=== PATIENT | female | born 1940 | race Caucasian/White ===

== ENCOUNTER 2018-07-31 11:20 | Inpatient (IN) ==
--- NOTE | 2018-07-31 13:12 | ED ---
HPI General Chief complaint: Weakness Stated complaint: Weak/Leg Complaint Time Seen by Provider: 07/31/18 12:53 History of Present Illness HPI narrative: 78-year-old female with history of atrial fibrillation on Eliquis , diabetes, hypothyroidism, presents with her for evaluation of weakness. Patient reports that for the past 8 months she has had weakness and fatigue, myalgias. The symptoms are worst proximally, primarily in the shoulder regions and in the thigh regions, less so distally. She has been following with neurologist Dr. Panchal. She had an outpatient muscle biopsy in the right thigh on June 10 and she was told that she had inflammation of the muscles. She was told that it may be related to statin use, she had been on statins for several years at that point. No longer on a statin. She has been referred to a neuromuscular specialist at the [facility] name Dr. Harris who she saw on July 02. She has been started on methotrexate and folic acid which she has been on for 1 month. She has been having home physical therapy twice a week. She reports that her symptoms are not improving. Today she felt more weak and fatigued than usual and this is what prompted evaluation. Typically her has to help her get out of bed and perform most of her activities of daily living and today was more difficult than most days. She denies any acute focal weakness. She denies any slurred speech, headache, acute neck or back pain, chest pain, shortness of breath, cough, congestion, abdominal pain, nausea, vomiting, fevers, chills, recent illness. She has no other complaints at this time. Primary care physician is at the [facility]. Related Data Home Medications Medication Instructions Recorded Confirmed apixaban [Eliquis] 5 mg PO BID 07/31/18 07/31/18 clonazepam 0.05 mg/kg PO BID 07/31/18 07/31/18 fluoxetine 20 mg PO DAILY 07/31/18 07/31/18 folic acid 1 mg PO DAILY 07/31/18 07/31/18 levothyroxine 50 mcg PO DAILY 07/31/18 07/31/18 losartan-hydrochlorothiazide 1 tab PO DAILY 07/31/18 07/31/18 metformin 500 mg PO BID 07/31/18 07/31/18 methotrexate sodium 20 mg PO QWEEK 07/31/18 07/31/18 metoprolol tartrate 12.5 mg PO BID 07/31/18 07/31/18 omeprazole 20 mg PO DAILY 07/31/18 07/31/18 timolol 1 drp OPHTHALMIC (EYE) BID 07/31/18 07/31/18 Allergies Allergy/AdvReac Type Severity Reaction Status Date / Time cefazolin [From [facility]] Allergy Abdominal Verified 07/31/18 13:02 Pain gentamicin AdvReac Severe VESTIBULAR Verified 07/31/18 11:40 DESTRUCTION Review of Systems ROS: all other systems reviewed are negative PMFSH Surgical History Surgical History History of bladder surgery (Acute) History of cholecystectomy (Acute) Hx of tonsillectomy (Acute) Family History Family History Mother Heart disease Father Heart disease Brother Heart disease Social History Social History Substance History: No History of Abuse Second Hand Smoke Exposure: No Smoking Status: Never smoker How Often Do You Have a Drink Containing Alcohol: Never Recent Travel in [facility] within the Last 8 Weeks: No Recent Out of Country Travel within the Last 8 Weeks: No Exam Narrative Exam Narrative: GENERAL: Pleasant well developed well-nourished female no acute distress. She required significant help getting from the wheelchair to the bed. SKIN: Warm and dry. HEAD: Atraumatic. Normocephalic. EYES: Pupils equal and round. No scleral icterus. No injection or drainage. ENT: No nasal bleeding or discharge. Mucous membranes pink and moist. NECK: Trachea midline. No JVD. CARDIOVASCULAR: Regular rate and rhythm. No murmur appreciated. RESPIRATORY: No accessory muscle use. Clear to auscultation. Breath sounds equal bilaterally. GASTROINTESTINAL: Abdomen soft, non-tender, nondistended. Hepatic and splenic margins not palpable. MUSCULOSKELETAL: No obvious deformities. Difficulty sitting on the edge of the bed. Requires help in order to go from a lying down to sitting position. There is 3-4 out of 5 muscle strength in the hips and shoulders bilaterally. Muscle strength is 4+ in the knees, ankles, wrists and elbows bilaterally. There is no edema in the extremities. NEUROLOGICAL: Awake and alert. No obvious cranial nerve deficits. Motor grossly within normal limits. Normal speech. Course Initial Documented Vital Signs Temperature 97.2 F L 07/31/18 11:28 Pulse Rate 54 L 07/31/18 11:28 Respiratory Rate 14 07/31/18 11:28 Blood Pressure 138/83 07/31/18 11:28 Pulse Oximetry 97 07/31/18 11:28 Last Documented Vital Signs Temperature 98.0 F 08/01/18 03:56 Pulse Rate 51 L 08/01/18 03:56 Respiratory Rate 16 08/01/18 03:56 Blood Pressure 137/62 08/01/18 03:56 Pulse Oximetry 94 L 08/01/18 04:00 Medical Decision Making LEIDY Attestation LEIDY supervised visit: Yes Attestation: I, Dr. Ventura, have reviewed the advance practice practitioner's documentation and am in agreement, met with the patient face to face, made the diagnosis, and the medical decision making was done by me. *My assessment and Findings: Myositis vs. polymyalgia rheumatica vs. rhabdomyolysis 78yo F with worsening generalized weakness that is more proximal muscles. This has been going on for months but worst last few days. Also more fatigue and frequent falls. Pt follows with neurologist Dr. Panchal and they thought it was myositis from statins and she has stopped taking statins for months. Labs reviewed, no leukocytosis. H/H normal. BUN/creatinine 20/0.99. CPK elevated at 1548. CKMB percentage is elevated at 6.1 but pt denies any chest pain or sob. TSH normal. Will admit pt for generalized weakness. MDM Narrative Medical decision making narrative: Lab work has been reviewed. Random glucose is 318, total CK is 1548 consistent with rhabdomyolysis. The patient was given 1 L of normal saline and 5 units of insulin. EKG reveals sinus bradycardia with a rate of 46. She will be admitted for further treatment. Discussed with the patient's neurologist Dr. Panchal, discussed with Dr. Francisco. Medical Screen Exam Complete: Yes Emergency Medical Condition: Yes Differential Diagnosis Differential Diagnosis: Polymyalgia rheumatica, inflammatory myopathy, drug- induced myositis, fibromyalgia, guillain [place], myasthenia gravis Lab Data Result diagrams: 08/01/18 03:35 08/01/18 03:35 Lab Results 07/31/18 07/31/18 07/31/18 Range/Units 13:19 13:30 13:30 WBC 8.2 (4.0-11.0) th/mm3 RBC 4.30 (4.00-5.30) mil/mm3 Hgb 13.2 (11.6-15.3) gm/dL Hct 39.7 (35.0-46.0) % MCV 92.2 (80.0-100.0) fL MCH 30.6 (27.0-34.0) pg MCHC 33.2 (32.0-36.0) % RDW 17.2 (11.6-17.2) % Plt Count 262 (150-450) th/mm3 MPV 7.1 (7.0-11.0) fL Neut % (Auto) 78.5 H (16.0-70.0) % Lymph % (Auto) 16.2 (9.0-44.0) % [place] % (Auto) 3.6 (0.0-8.0) % Eos % (Auto) 1.3 (0.0-4.0) % Baso % (Auto) 0.4 (0.0-2.0) % Neut # (Auto) 6.5 (1.8-7.7) th/mm3 Lymph # (Auto) 1.3 (1.0-4.8) th/mm3 [place] # (Auto) 0.3 (0.0-0.9) th/mm3 Eos # (Auto) 0.1 (0.0-0.4) th/mm3 Baso # (Auto) 0.0 (0.0-0.2) th/mm3 WBC Differential . Differential Comment Auto diff final Sodium 140 (136-145) meq/L Potassium 4.6 (3.5-5.1) meq/L Chloride 102 (98-107) meq/L Carbon Dioxide 30.7 (21.0-32.0) meq/L Anion Gap 7 (5-15) meq/L BUN 20 H (7-18) mg/dL Creatinine 0.99 (0.50-1.00) mg/dL Estimated GFR 54 L (>89) mL/min POC Glucose 266 H (68-110) mg/dl Random Glucose 318 H (74-106) mg/dL Calcium 8.5 (8.5-10.1) mg/dL Magnesium 2.1 (1.5-2.5) mg/dL Total Bilirubin 0.4 (0.2-1.0) mg/dL AST 55 H (15-37) U/L ALT 96 H (10-53) U/L Alkaline Phosphatase 86 (45-117) U/L Total Creatine Kinase 1548 H (26-192) U/L CK-MB (CK-2) 93.9 H (0.5-3.6) ng/mL CK-MB (CK-2) % 6.1 H* (0.0-4.0) % Total Protein 6.5 (6.4-8.2) g/dL Albumin 3.0 L (3.4-5.0) g/dL TSH 0.688 (0.358-3.740) uIU/mL Urine Color (Yellw/Straw) Urine Clarity (Clear) Urine pH (5.0-8.5) Ur Specific Shock (1.002-1.035) Urine Protein (Neg-Trace) mg/dL Urine Glucose (UA) (Negative) mg/dL Urine Ketones (Negative) mg/dL Urine Occult Blood (Negative) Urine Nitrate (Negative) Urine Bilirubin (Negative) Urine Urobilinogen (Less than 2) mg/dL Ur Leukocyte Esterase (Negative) Urine RBC (0-3) /hpf Urine WBC (0-5) /hpf Ur Squamous Epith Cells (0-5) /hpf Urine Bacteria (None) /hpf Hyaline Casts (0-3) /lpf Urine Mucus (Occasional) /lpf Micro UA Comment Ur Microscopic Review Urine Culture Comments IgA (90-497) mg/dL 07/31/18 07/31/18 07/31/18 Range/Units 15:24 17:04 20:50 WBC (4.0-11.0) th/mm3 RBC (4.00-5.30) mil/mm3 Hgb (11.6-15.3) gm/dL Hct (35.0-46.0) % MCV (80.0-100.0) fL MCH (27.0-34.0) pg MCHC (32.0-36.0) % RDW (11.6-17.2) % Plt Count (150-450) th/mm3 MPV (7.0-11.0) fL Neut % (Auto) (16.0-70.0) % Lymph % (Auto) (9.0-44.0) % [place] % (Auto) (0.0-8.0) % Eos % (Auto) (0.0-4.0) % Baso % (Auto) (0.0-2.0) % Neut # (Auto) (1.8-7.7) th/mm3 Lymph # (Auto) (1.0-4.8) th/mm3 [place] # (Auto) (0.0-0.9) th/mm3 Eos # (Auto) (0.0-0.4) th/mm3 Baso # (Auto) (0.0-0.2) th/mm3 WBC Differential Differential Comment Sodium (136-145) meq/L Potassium (3.5-5.1) meq/L Chloride (98-107) meq/L Carbon Dioxide (21.0-32.0) meq/L Anion Gap (5-15) meq/L BUN (7-18) mg/dL Creatinine (0.50-1.00) mg/dL Estimated GFR (>89) mL/min POC Glucose 195 H 113 H (68-110) mg/dl Random Glucose (74-106) mg/dL Calcium (8.5-10.1) mg/dL Magnesium (1.5-2.5) mg/dL Total Bilirubin (0.2-1.0) mg/dL AST (15-37) U/L ALT (10-53) U/L Alkaline Phosphatase (45-117) U/L Total Creatine Kinase (26-192) U/L CK-MB (CK-2) (0.5-3.6) ng/mL CK-MB (CK-2) % (0.0-4.0) % Total Protein (6.4-8.2) g/dL Albumin (3.4-5.0) g/dL TSH (0.358-3.740) uIU/mL Urine Color Yellow (Yellw/Straw) Urine Clarity Hazy H (Clear) Urine pH 5.0 (5.0-8.5) Ur Specific Shock 1.010 (1.002-1.035) Urine Protein Negative (Neg-Trace) mg/dL Urine Glucose (UA) Negative (Negative) mg/dL Urine Ketones Negative (Negative) mg/dL Urine Occult Blood Negative (Negative) Urine Nitrate Negative (Negative) Urine Bilirubin Negative (Negative) Urine Urobilinogen Less than 2 (Less than 2) mg/dL Ur Leukocyte Esterase Negative (Negative) Urine RBC 1 (0-3) /hpf Urine WBC 1 (0-5) /hpf Ur Squamous Epith Cells 6 (0-5) /hpf Urine Bacteria Occasional H (None) /hpf Hyaline Casts 1 (0-3) /lpf Urine Mucus Few H (Occasional) /lpf Micro UA Comment Culture not ind Ur Microscopic Review Not Reportable Urine Culture Comments Culture not ind IgA (90-497) mg/dL 07/31/18 07/31/18 08/01/18 Range/Units 20:54 20:54 03:35 WBC (4.0-11.0) th/mm3 RBC (4.00-5.30) mil/mm3 Hgb (11.6-15.3) gm/dL Hct (35.0-46.0) % MCV (80.0-100.0) fL MCH (27.0-34.0) pg MCHC (32.0-36.0) % RDW (11.6-17.2) % Plt Count (150-450) th/mm3 MPV (7.0-11.0) fL Neut % (Auto) (16.0-70.0) % Lymph % (Auto) (9.0-44.0) % [place] % (Auto) (0.0-8.0) % Eos % (Auto) (0.0-4.0) % Baso % (Auto) (0.0-2.0) % Neut # (Auto) (1.8-7.7) th/mm3 Lymph # (Auto) (1.0-4.8) th/mm3 [place] # (Auto) (0.0-0.9) th/mm3 Eos # (Auto) (0.0-0.4) th/mm3 Baso # (Auto) (0.0-0.2) th/mm3 WBC Differential Differential Comment Sodium 140 (136-145) meq/L Potassium 4.0 (3.5-5.1) meq/L Chloride 106 (98-107) meq/L Carbon Dioxide 29.2 (21.0-32.0) meq/L Anion Gap 5 (5-15) meq/L BUN 18 (7-18) mg/dL Creatinine 0.94 (0.50-1.00) mg/dL Estimated GFR 57 L (>89) mL/min POC Glucose (68-110) mg/dl Random Glucose 190 H D (74-106) mg/dL Calcium 8.0 L (8.5-10.1) mg/dL Magnesium (1.5-2.5) mg/dL Total Bilirubin 0.6 (0.2-1.0) mg/dL AST 43 H (15-37) U/L ALT 76 H (10-53) U/L Alkaline Phosphatase 80 (45-117) U/L Total Creatine Kinase 1283 H 1372 H (26-192) U/L CK-MB (CK-2) 60.2 H 53.6 H (0.5-3.6) ng/mL CK-MB (CK-2) % 4.7 H* 3.9 (0.0-4.0) % Total Protein 6.2 L (6.4-8.2) g/dL Albumin 2.7 L (3.4-5.0) g/dL TSH (0.358-3.740) uIU/mL Urine Color (Yellw/Straw) Urine Clarity (Clear) Urine pH (5.0-8.5) Ur Specific Shock (1.002-1.035) Urine Protein (Neg-Trace) mg/dL Urine Glucose (UA) (Negative) mg/dL Urine Ketones (Negative) mg/dL Urine Occult Blood (Negative) Urine Nitrate (Negative) Urine Bilirubin (Negative) Urine Urobilinogen (Less than 2) mg/dL Ur Leukocyte Esterase (Negative) Urine RBC (0-3) /hpf Urine WBC (0-5) /hpf Ur Squamous Epith Cells (0-5) /hpf Urine Bacteria (None) /hpf Hyaline Casts (0-3) /lpf Urine Mucus (Occasional) /lpf Micro UA Comment Ur Microscopic Review Urine Culture Comments IgA 92 Cancelled (90-497) mg/dL 08/01/18 Range/Units 03:35 WBC 5.0 (4.0-11.0) th/mm3 RBC 4.04 (4.00-5.30) mil/mm3 Hgb 12.2 (11.6-15.3) gm/dL Hct 36.7 (35.0-46.0) % MCV 90.8 (80.0-100.0) fL MCH 30.2 (27.0-34.0) pg MCHC 33.3 (32.0-36.0) % RDW 16.5 (11.6-17.2) % Plt Count 209 (150-450) th/mm3 MPV 7.1 (7.0-11.0) fL Neut % (Auto) 60.6 (16.0-70.0) % Lymph % (Auto) 33.4 (9.0-44.0) % [place] % (Auto) 2.1 (0.0-8.0) % Eos % (Auto) 2.9 (0.0-4.0) % Baso % (Auto) 1.0 (0.0-2.0) % Neut # (Auto) 3.0 (1.8-7.7) th/mm3 Lymph # (Auto) 1.7 (1.0-4.8) th/mm3 [place] # (Auto) 0.1 (0.0-0.9) th/mm3 Eos # (Auto) 0.1 (0.0-0.4) th/mm3 Baso # (Auto) 0.0 (0.0-0.2) th/mm3 WBC Differential . Differential Comment Auto diff final Sodium (136-145) meq/L Potassium (3.5-5.1) meq/L Chloride (98-107) meq/L Carbon Dioxide (21.0-32.0) meq/L Anion Gap (5-15) meq/L BUN (7-18) mg/dL Creatinine (0.50-1.00) mg/dL Estimated GFR (>89) mL/min POC Glucose (68-110) mg/dl Random Glucose (74-106) mg/dL Calcium (8.5-10.1) mg/dL Magnesium (1.5-2.5) mg/dL Total Bilirubin (0.2-1.0) mg/dL AST (15-37) U/L ALT (10-53) U/L Alkaline Phosphatase (45-117) U/L Total Creatine Kinase (26-192) U/L CK-MB (CK-2) (0.5-3.6) ng/mL CK-MB (CK-2) % (0.0-4.0) % Total Protein (6.4-8.2) g/dL Albumin (3.4-5.0) g/dL TSH (0.358-3.740) uIU/mL Urine Color (Yellw/Straw) Urine Clarity (Clear) Urine pH (5.0-8.5) Ur Specific Shock (1.002-1.035) Urine Protein (Neg-Trace) mg/dL Urine Glucose (UA) (Negative) mg/dL Urine Ketones (Negative) mg/dL Urine Occult Blood (Negative) Urine Nitrate (Negative) Urine Bilirubin (Negative) Urine Urobilinogen (Less than 2) mg/dL Ur Leukocyte Esterase (Negative) Urine RBC (0-3) /hpf Urine WBC (0-5) /hpf Ur Squamous Epith Cells (0-5) /hpf Urine Bacteria (None) /hpf Hyaline Casts (0-3) /lpf Urine Mucus (Occasional) /lpf Micro UA Comment Ur Microscopic Review Urine Culture Comments IgA (90-497) mg/dL ECG Data EKG Prior to Arrival: No Attestation: I personally reviewed and interpreted this ECG as follows: Interpretation: Sinus bradycardia at 46bpm. Normal axis. No significant ST elevation or depression. Discharge Plan Discharge Disposition Patient Disposition: 30 Still Patient Discharge Condition Condition: Stable Discharge Details Diagnosis: Rhabdomyolysis, Weakness Physicians Team ED Provider: Magali Ventura ED Midlevel Provider: Juan Finn Primary Care Provider: JAYMIE, Attending Provider: Jonel Hall Other Providers: Leandro Panchal ; [employer] Status ED Status: Left Department Discharge Information Discharge Date/Time: 07/31/18 19:56
[2018-07-31 13:47] LABS: Baso % (Auto) 0.4 % (0.0-2.0); Eos # (Auto) 0.1 th/mm3 (0.0-0.4); Eos % (Auto) 1.3 % (0.0-4.0); Hematocrit 39.7 % (35.0-46.0); Hemoglobin 13.2 gm/dL (11.6-15.3); Lymph # (Auto) 1.3 th/mm3 (1.0-4.8); Lymph % (Auto) 16.2 % (9.0-44.0); Mean Corpuscular HGB Conc 33.2 % (32.0-36.0); Mean Corpuscular Hemoglobin 30.6 pg (27.0-34.0); Mean Corpuscular Volume 92.2 fL (80.0-100.0); Mean Platelet Volume 7.1 fL (7.0-11.0); Mono # (Auto) 0.3 th/mm3 (0.0-0.9); Mono % (Auto) 3.6 % (0.0-8.0); Neut # (Auto) 6.5 th/mm3 (1.8-7.7); Neut % (Auto) 78.5 % (16.0-70.0); Platelet Count 262 th/mm3 (150-450); Red Cell Distribution Width 17.2 % (11.6-17.2); White Blood Count 8.2 th/mm3 (4.0-11.0)
[2018-07-31 13:52] LABS: Alanine Aminotransferase 96 U/L (10-53); Anion Gap 7 meq/L (5-15); Aspartate Aminotransferase 55 U/L (15-37); Blood Urea Nitrogen 20 mg/dL (7-18); Calcium 8.5 mg/dL (8.5-10.1); Carbon Dioxide 30.7 meq/L (21.0-32.0); Chloride 102 meq/L (98-107); Glomerular Filtration Rate 54 mL/min (>89); Glucose,Random 318 mg/dL (74-106); Magnesium 2.1 mg/dL (1.5-2.5); Potassium 4.6 meq/L (3.5-5.1); Sodium 140 meq/L (136-145)
[2018-07-31 14:06] LABS: Alkaline Phosphatase 86 U/L (45-117); Creatine Kinase 1548 U/L (26-192); Thyroid Stimulating Hormone 0.688 uIU/mL (0.358-3.740); Total Protein 6.5 g/dL (6.4-8.2)
[2018-07-31] MEDS ORDERED: Sod Chloride 0.9% Inj 1,000 ML IV.SIG SCH (14:15)
[2018-07-31 14:18] LABS: Creatine Kinase MB 93.9 ng/mL (0.5-3.6)
[2018-07-31 14:27] LABS: CKMB Percent 6.1 % (0.0-4.0)
[2018-07-31] MEDS ORDERED: Dextrose 50% in Water 50 ML Vial IV.PUSH PRN (15:18)
[2018-07-31] MEDS ORDERED: Acetaminophen 325 MG Tablet PO PRN (15:21)
[2018-07-31] MEDS ORDERED: Bisacodyl 10 MG Supp RECTAL PRN (15:21)
[2018-07-31] MEDS: Sod Chloride 0.9% Inj 1,000 ML IV.CONT SCH ×2 (15:42→23:42)
[2018-07-31] MEDS: Insulin NovoLOG Aspart Correctional Sugar Inj SQ SCH ×2 (17:08→20:02)
--- NOTE | 2018-07-31 19:07 | P.HPIM ---
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 She also reports sweating over the past day with some nausea which has currently resolved. She has been unable to get out of bed, get out of a chair. Denies any chest pain. When asked about diarrhea she reports being unable to control her stool over the past month but denies gunnar diarrhea. Review of Systems All other systems reviewed negative except as stated in HPI PMFSH - History History Provided By: Patient - Medical History Medical History: Medical History (Last Reviewed 07/31/18 @ 19:07 by Nash Francisco MD) Diabetes FH: cholecystectomy Hypertension Thyroid disorder - Surgical History Surgical History: Surgical History (Last Updated 07/31/18 @ 19:07 by Nash Francisco MD) History of bladder surgery History of cholecystectomy Hx of tonsillectomy - Family History Family History: Family History (Last Updated 07/31/18 @ 19:07 by Nash Francisco MD) Mother Heart disease Father Heart disease Brother Heart disease - Social History I have reviewed the patient's Social History: Yes - Tobacco History Second Hand Smoke Exposure: No Smoking Status: Never smoker - Alcohol History How Often Do You Have a Drink Containing Alcohol: Never - Substance Use History Substance History: No History of Abuse - Travel History Recent Travel in the [place] Within the Last 8 Weeks: No Recent Travel Out of the Country Within the Last 8 Weeks: No - Immunization History Tetanus Immunization: <5 Years Medications and Allergies Active Medications: Active Medications Acetaminophen (Tylenol) 650 mg PO Q4H PRN PRN Reason: Temp > 100.4 Acetaminophen (Tylenol) 650 mg PO Q24H [facility] Stop: 08/05/18 18:59 Al Hydroxide/Mg Hydroxide (Milk Of Magnesia Liq) 30 ml PO Q12H PRN PRN Reason: Mild Constipation Apixaban (Eliquis) 5 mg PO BID [facility] Bisacodyl (Dulcolax Supp) 10 mg RECTAL DAILY PRN PRN Reason: SEVERE CONSITIPATION Dextrose (D50w Vial) 50 ml IV.PUSH UNSCH PRN PRN Reason: PER HYPOGLYCEMIA PROTOCOL Diphenhydramine HCl (Benadryl) 25 mg PO Q24H [facility] Stop: 08/05/18 18:59 Diphenhydramine HCl (Benadryl Inj) 50 mg IV.PUSH PRN PRN PRN Reason: ALLERGIC REACTION Stop: 08/06/18 18:49 Epinephrine HCl (Epinephrine (1:1000) Inj) 0.3 mg OTHER Q10M PRN PRN Reason: Anaphylactic Reaction Stop: 08/06/18 18:49 Fluoxetine HCl (Prozac) 20 mg PO DAILY [facility] Folic Acid (Folic Acid) 1 mg PO DAILY [facility] Glucagon (Glucagon Inj) 1 mg OTHER PRN PRN PRN Reason: for Hypoglycemia Protocol Hydrochlorothiazide (Hydrodiuril) 25 mg PO DAILY [facility] Sodium Chloride (Ns Inj) 1,000 mls @ 150 mls/hr IV.CONT .Q6H40M [facility] Last Admin: 07/31/18 15:42 Dose: 150 mls/hr Dextrose (D5w Inj) 500 mls @ 30 mls/hr OTHER Q24H [facility] Stop: 08/05/18 18:59 Immune Globulin 30 gm/ (Miscellaneous Medication) 300 mls @ 37.5 mls/hr IV.SIG TITRATE [facility]; Protocol Stop: 08/05/18 19:49 Insulin Aspart (Novolog Insulin Correctional Sugar Inj) 0 unit SQ ACHS [facility]; Protocol Last Admin: 07/31/18 17:08 Dose: Not Given Insulin Detemir (Levemir Inj) 1 unit SQ BID [facility] Lactulose (Lactulose Liq) 30 ml PO DAILY PRN PRN Reason: SEVERE CONSITIPATION Levothyroxine Sodium (Synthroid) 50 mcg PO DAILY@0600 [facility] Losartan Potassium (Cozaar) 100 mg PO DAILY [facility] Metoprolol Tartrate (Lopressor) 12.5 mg PO BID [facility] Miscellaneous (Pill Splitter) 1 each OTHER PRN PRN PRN Reason: SEE LABEL COMMENTS Ondansetron HCl (Zofran Inj) 4 mg IV.PUSH Q6H PRN PRN Reason: NAUSEA OR VOMITING Pantoprazole Sodium (Protonix) 20 mg PO DAILY [facility] Sennosides (Senokot) 17.2 mg PO Q12H PRN PRN Reason: Moderate Constipation Sodium Chloride (Ns Flush) 2 ml IV.FLUSH BID [facility] Sodium Chloride (Ns Flush) 2 ml IV.FLUSH PRN PRN PRN Reason: FLUSH AFTER USING IV ACCESS Timolol Maleate (Timoptic 0.5% Drops) 1 drops EACH EYE BID [facility] Allergies Allergy/AdvReac Type Severity Reaction Status Date / Time cefazolin [From [facility]] Allergy Abdominal Verified 07/31/18 13:02 Pain gentamicin AdvReac Severe VESTIBULAR Verified 07/31/18 11:40 DESTRUCTION Home Medications Medication Instructions Recorded Confirmed Type apixaban [Eliquis] 5 mg PO BID 07/31/18 07/31/18 History clonazepam 0.05 mg/kg PO BID 07/31/18 07/31/18 History fluoxetine 20 mg PO DAILY 07/31/18 07/31/18 History folic acid 1 mg PO DAILY 07/31/18 07/31/18 History levothyroxine 50 mcg PO DAILY 07/31/18 07/31/18 History losartan-hydrochlorothiazide 1 tab PO DAILY 07/31/18 07/31/18 History metformin 500 mg PO BID 07/31/18 07/31/18 History methotrexate sodium 20 mg PO QWEEK 07/31/18 07/31/18 History metoprolol tartrate 12.5 mg PO BID 07/31/18 07/31/18 History omeprazole 20 mg PO DAILY 07/31/18 07/31/18 History timolol 1 drp OPHTHALMIC (EYE) BID 07/31/18 07/31/18 History Exam Vital signs: Vital Signs 07/31/18 11:28 07/31/18 13:05 07/31/18 15:18 Temperature 97.2 F L 97.8 F Pulse Rate 54 L 45 L 48 L Respiratory Rate 14 16 Blood Pressure 138/83 140/66 Pulse Oximetry 97 99 07/31/18 17:00 07/31/18 17:33 Temperature 97.7 F 97.7 F Pulse Rate 52 L 51 L Respiratory Rate 17 16 Blood Pressure 132/77 131/62 Pulse Oximetry 98 95 Intake & Output 07/31/18 07/31/18 08/01/18 06:59 18:59 06:59 Intake Total 1000 / 1000 Balance 1000 / 1000 Weight 73.936 kg Intake: IV 1000 / 1000 NS Inj 1,000 ML @ 1000 mls/hr 1000 / 1000 IV.SIG BOLUS [facility] Rx#:[id number] Other: Date of Last Bowel Movement 07/30/18 Narrative: GENERAL: patient lying in bed. Appears comfortable. Alert and oriented 4. SKIN: Warm and dry. HEAD: Atraumatic. Normocephalic. EYES: Pupils equal and round. No scleral icterus. No injection or drainage. ENT: No nasal bleeding or discharge. Mucous membranes pink and moist. NECK: Trachea midline. No JVD. CARDIOVASCULAR: Regular rate and rhythm. RESPIRATORY: No accessory muscle use. Clear to auscultation. Breath sounds equal bilaterally. GASTROINTESTINAL: Abdomen soft, non-tender, nondistended. Hepatic and splenic margins not palpable. MUSCULOSKELETAL: Extremities without clubbing, cyanosis, or edema. No obvious deformities. NEUROLOGICAL: Awake and alert. No obvious cranial nerve deficits. Motor grossly within normal limits. 4 out of 5 muscle strength in the arms and legs. Normal speech. PSYCHIATRIC: Appropriate mood and affect; insight and judgment normal. Results - Labs CBC & Chem 7: 07/31/18 13:30 07/31/18 13:30 Labs: Short CBC 07/31/18 Range/Units 13:30 WBC 8.2 (4.0-11.0) th/mm3 Hgb 13.2 (11.6-15.3) gm/dL Hct 39.7 (35.0-46.0) % Plt Count 262 (150-450) th/mm3 BMP 07/31/18 13:30 Sodium 140 Potassium 4.6 Chloride 102 Carbon Dioxide 30.7 BUN 20 H Creatinine 0.99 Calcium 8.5 Cardiac Enzymes 07/31/18 Range/Units 13:30 Total Creatine Kinase 1548 H (26-192) U/L CK-MB (CK-2) 93.9 H (0.5-3.6) ng/mL Liver Function 07/31/18 Range/Units 13:30 Total Bilirubin 0.4 (0.2-1.0) mg/dL AST 55 H (15-37) U/L ALT 96 H (10-53) U/L Alkaline Phosphatase 86 (45-117) U/L Albumin 3.0 L (3.4-5.0) g/dL Caprini VTE Risk Assessment Caprini VTE Risk Assessment: Moderate/High Risk (score >= 2) Caprini Risk Assessment Model: Point Value = 1 Point Value = 2 Point Value = 3 Point Value = 5 Age 41-60 Minor surgery BMI > 25 kg/m2 Swollen legs Varicose veins or History of unexplained or recurrent spontaneous Oral contraceptives or hormone replacement Sepsis (< 1 month) Serious lung disease, including pneumonia (< 1 month) Abnormal pulmonary function Acute myocardial infarction Congestive heart failure (< 1 month) History of inflammatory bowel disease Medical patient at bed rest Age 61-74 Arthroscopic surgery Major open surgery (> 45 min) Laparoscopic surgery (> 45 min) Malignancy Confined to bed (> 72 hours) Immobilizing plaster cast Central venous access Age >= 75 History of VTE Family history of VTE Factor V Leiden Prothrombin 63131M Lupus anticoagulant Anticardiolipin antibodies Elevated serum homocysteine Heparin-induced thrombocytopenia Other congenital or acquired thrombophilia Stroke (< 1 month) Elective arthroplasty Hip, pelvis, or leg fracture Acute spinal cord injury (< 1 month) Prophylaxis Regimen: Total Risk Factor Score Risk Level Prophylaxis Regimen 0-1 Low Early ambulation 2 Moderate Order ONE of the following: *Sequential Compression Device (SCD) *Heparin 5000 units SQ BID 3-4 Higher Order ONE of the following medications: *Heparin 5000 units SQ TID *Enoxaparin/Lovenox 40 mg SQ daily (WT < 150 kg, CrCl > 30 mL/min) *Enoxaparin/Lovenox 30 mg SQ daily (WT < 150 kg, CrCl > 10-29 mL/min) *Enoxaparin/Lovenox 30 mg SQ BID (WT < 150 kg, CrCl > 30 mL/min) AND/OR *Sequential Compression Device (SCD) 5 or more Highest Order ONE of the following medications: *Heparin 5000 units SQ TID (Preferred with Epidurals) *Enoxaparin/Lovenox 40 mg SQ daily (WT < 150 kg, CrCl > 30 mL/min) *Enoxaparin/Lovenox 30 mg SQ daily (WT < 150 kg, CrCl > 10-29 mL/min) *Enoxaparin/Lovenox 30 mg SQ BID (WT < 150 kg, CrCl > 30 mL/min) AND *Sequential Compression Device (SCD) Assessment and Plan - Plan //Acute exacerbation of chronic inflammatory myopathy. //Acute CK elevation. -CK 1548, with mild elevation in transaminases -We'll place on IV fluids. Discussed with Dr. Panchal of neurology. Have ordered 0.4 g/kg of IVIG daily 5 days. Neurology consulted. continue to monitor. Appreciate assistance. //Diabetes mellitus. With hyperglycemia in the 300s on admission Insulin sliding scale, diabetic diet. Start Levemir Check A1c //Atrial fibrillation Continue metoprolol for rate control. Continue Eliquis for anticoagulation. //Hypertension. Chronic. Blood pressure acceptable. Continue to monitor. Continue home medication. //Glaucoma. Chronic. Continue medication. //Hypothyroidism. Chronic. TSH 0.68 within normal limits. Continue home medication. //DVT prophylaxis. Patient is on therapeutic adequate hydration for atrial fibrillation. Discussed Condition With: patient, nurse, ED physician, Dr. Panchal. Discharge Planning: PT, OT consult pending. Hopefully patient will be able to go home with home health if improved, however suspect she may need rehabilitation. H&P: Quality - VTE Deep Vein Thrombosis/Pulmonary Embolism Present on Admission: No
[2018-07-31] MEDS: Acetaminophen 325 MG Tablet PO SCH (20:00)
[2018-07-31] MEDS: Metoprolol Tartrate 25 MG Tablet PO SCH (20:01)
[2018-07-31] MEDS ORDERED: IVIG (Immune Globulin) Inj 30 GM in Syringe/Bag 1 EACH IV.SIG SCH (21:00)
[2018-07-31 21:11] LABS: Bacteria,Urine Occasional /hpf; Bilirubin,Urine Negative (Negative); Clarity,Urine Hazy (Clear); Color,Urine Yellow (Yellw/Straw); Glucose,Urine (UA) Negative (Negative); Hyaline Casts,Urine 1 /lpf (0-3); Leukocyte Esterase,Urine Negative (Negative); Mucus,Urine Few /lpf (Occasional); Nitrite,Urine Negative (Negative); Squamous Epithelial Cell,Urine 6 /hpf (0-5)
[2018-07-31] MEDS: Timolol 0.5% Drops 5 ML Bottle EACH EYE SCH (21:27)
[2018-07-31 22:23] LABS: Creatine Kinase MB 60.2 ng/mL (0.5-3.6)
[2018-07-31 22:28] LABS: CKMB Percent 4.7 % (0.0-4.0)
--- NOTE | 2018-07-31 22:50 | MB ---
cc: Leandro Panchal MD DATE: 07/31/2018 HISTORY OF PRESENT ILLNESS: This is a 78-year-old woman who I have seen in the office before. She initially presented to [facility] with a history of hypertension, atrial fibrillation, insulin-dependent diabetes, on Eliquis 5 b.i.d., who had weakness, dyspnea on exertion. She had a cardiac catheterization with no stents or other intervention. She was feeling weak in her arms and legs, pain in her muscles. She was taken off her statin. Her troponins were elevated x 3. Her LDL was 68. On LFTs, her ALT was 130, AST 79. B12 of 938. ANABEL was negative. Rheumatoid factor negative. Thyroid normal. CPK was 3700. Sedimentation rate was 29. CAT scan was negative, as was chest x-ray. She had lower extremity weakness. We then saw her in the office. We did an EMG of the lower extremities. She had normal sensory snaps, some slowed conduction velocity of 33 meters per second in the legs and 36 meters second. EMG was normal below the knees. The right hamstring had a complex pattern of discharges, increased insertional activity, 3+ fibrillations, small polyphasic units. The right vastus lateralis, 1+ positive sharp waves with small polyphasic units, and she had an EMG that was consistent with a myopathy, active. Right deltoid was also involved. It was a mild motor neuropathy with involvement of the cervical, thoracic and lumbosacral paraspinal muscles. She had mild bilateral carpal tunnel syndrome, mild left cubital tunnel syndrome, but myopathic units were noted. She was put on steroids and felt a little bit better. Appetite was better, more energy, but fell and hit her coccyx. She had a coccyx fracture. 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 Her methylmalonic acid anti-GM1 antibody was normal. CPK was 2800. Anti-MAG antibodies were normal. Her B1, magnesium, NOAH level, sedimentation rate, nicotinic acid, B6 were all normal. She continued to be very weak. She was put on methotrexate from the [facility] last week after they found that she had antibody positive for anti-HMGCR antibody with a value 148, normal less than 20. Antinuclear antibody was negative. The myositis panels were normal. CBC was normal. CPK was 1840. AST was 56 and ALT was 133 on 07/02/2018. Methotrexate was started about a week ago. She seemed to feel somewhat better, but still very weak and she presented to the ER today for this weakness. Unable to get up off of bed by herself. MEDICATIONS AT HOME: 1. Apixaban 5 b.i.d. 2. Metoprolol. 3. Losartan. 4. Hydrochlorothiazide. 5. Thyroid medicine. 6. Klonopin 0.5 mg p.o. b.i.d. 7. Omeprazole. 8. Methotrexate 20 mg a week. 9. Metformin. 10. Folic acid 1 mg a day. 11. Fluoxetine. She continues on those medications here. PHYSICAL EXAMINATION: VITAL SIGNS: Afebrile, 52, 16, 130/52. NECK: There are no carotid bruits. HEART: Regular rate and rhythm. I do not detect a murmur. ABDOMEN: Soft and nontender. No complaints. NEUROLOGIC: Visual redman are full. Face is symmetric. Tongue is midline. Neck flexion is normal. Deltoids, triceps, finger extensors normal. Iliopsoas, she can get off the bed. I would rate her as about a 4/5. Tibialis anterior 5/5. DTRs trace. She is awake and alert. Speech is fluent. She is not aphasic. LABORATORY DATA: CBC is normal. UA is negative. Basic metabolic profile is normal. Glucose 113-266, AST 55, ALT 96. CPK 548. TSH normal. ELECTROCARDIOGRAM: Sinus rhythm, sinus sandra. 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 TREATMENT: IVIG and we will continue the methotrexate. Monitor her renal function on the IVIG and I will follow her with you in the hospital. MD CALLI Ram/bj , 09:50 PM , 10:01 PM
[2018-08-01 04:01] LABS: Eos # (Auto) 0.1 th/mm3 (0.0-0.4); Eos % (Auto) 2.9 % (0.0-4.0); Hematocrit 36.7 % (35.0-46.0); Hemoglobin 12.2 gm/dL (11.6-15.3); Lymph # (Auto) 1.7 th/mm3 (1.0-4.8); Lymph % (Auto) 33.4 % (9.0-44.0); Mean Corpuscular HGB Conc 33.3 % (32.0-36.0); Mean Corpuscular Hemoglobin 30.2 pg (27.0-34.0); Mean Corpuscular Volume 90.8 fL (80.0-100.0); Mean Platelet Volume 7.1 fL (7.0-11.0); Mono # (Auto) 0.1 th/mm3 (0.0-0.9); Mono % (Auto) 2.1 % (0.0-8.0); Neut % (Auto) 60.6 % (16.0-70.0); Platelet Count 209 th/mm3 (150-450); Red Blood Count 4.04 mil/mm3 (4.00-5.30); Red Cell Distribution Width 16.5 % (11.6-17.2)
[2018-08-01 04:32] LABS: Alanine Aminotransferase 76 U/L (10-53); Albumin 2.7 g/dL (3.4-5.0); Anion Gap 5 meq/L (5-15); Aspartate Aminotransferase 43 U/L (15-37); Blood Urea Nitrogen 18 mg/dL (7-18); Carbon Dioxide 29.2 meq/L (21.0-32.0); Chloride 106 meq/L (98-107); Glomerular Filtration Rate 57 mL/min (>89); Glucose,Random 190 mg/dL (74-106); Sodium 140 meq/L (136-145)
[2018-08-01] MEDS: Sod Chloride 0.9% Inj 1,000 ML IV.CONT SCH ×3 (04:40→18:19)
[2018-08-01 05:01] LABS: Alkaline Phosphatase 80 U/L (45-117); Creatine Kinase 1372 U/L (26-192); Total Protein 6.2 g/dL (6.4-8.2)
[2018-08-01 05:26] LABS: CKMB Percent 3.9 % (0.0-4.0); Creatine Kinase MB 53.6 ng/mL (0.5-3.6)
[2018-08-01] MEDS: Levothyroxine 50 MCG Tablet PO SCH (06:06)
--- NOTE | 2018-08-01 06:24 | P.PNNEU ---
Subjective Active Medications: Active Medications Acetaminophen (Tylenol) 650 mg PO Q4H PRN PRN Reason: Temp > 100.4 Acetaminophen (Tylenol) 650 mg PO Q24H [facility] Stop: 08/05/18 18:59 Last Admin: 07/31/18 20:00 Dose: 650 mg Al Hydroxide/Mg Hydroxide (Milk Of Magnhallie Liq) 30 ml PO Q12H PRN PRN Reason: Mild Constipation Apixaban (Eliquis) 5 mg PO BID [facility] Last Admin: 07/31/18 20:01 Dose: 5 mg Bisacodyl (Dulcolax Supp) 10 mg RECTAL DAILY PRN PRN Reason: SEVERE CONSITIPATION Dextrose (D50w Vial) 50 ml IV.PUSH UNSCH PRN PRN Reason: PER HYPOGLYCEMIA PROTOCOL Diphenhydramine HCl (Benadryl) 25 mg PO Q24H [facility] Stop: 08/05/18 18:59 Last Admin: 07/31/18 20:01 Dose: 25 mg Diphenhydramine HCl (Benadryl Inj) 50 mg IV.PUSH PRN PRN PRN Reason: ALLERGIC REACTION Stop: 08/06/18 18:49 Epinephrine HCl (Epinephrine (1:1000) Inj) 0.3 mg OTHER Q10M PRN PRN Reason: Anaphylactic Reaction Stop: 08/06/18 18:49 Fluoxetine HCl (Prozac) 20 mg PO DAILY [facility] Folic Acid (Folic Acid) 1 mg PO DAILY [facility] Glucagon (Glucagon Inj) 1 mg OTHER PRN PRN PRN Reason: for Hypoglycemia Protocol Hydrochlorothiazide (Hydrodiuril) 25 mg PO DAILY [facility] Sodium Chloride (Ns Inj) 1,000 mls @ 150 mls/hr IV.CONT .Q6H40M [facility] Last Infusion: 08/01/18 04:40 Dose: 150 mls/hr Dextrose (D5w Inj) 500 mls @ 30 mls/hr OTHER Q24H [facility] Stop: 08/05/18 19:59 Last Infusion: 08/01/18 04:39 Dose: 0 mls/hr Immune Globulin 30 gm/ (Miscellaneous Medication) 300 mls @ 37.5 mls/hr IV.SIG TITRATE [facility]; Protocol Stop: 08/05/18 20:59 Last Infusion: 08/01/18 04:27 Dose: Infused Insulin Aspart (Novolog Insulin Correctional Sugar Inj) 0 unit SQ ACHS [facility]; Protocol Last Admin: 07/31/18 20:02 Dose: Not Given Insulin Detemir (Levemir Inj) 1 unit SQ BID [facility] Lactulose (Lactulose Liq) 30 ml PO DAILY PRN PRN Reason: SEVERE CONSITIPATION Levothyroxine Sodium (Synthroid) 50 mcg PO DAILY@0600 [facility] Last Admin: 08/01/18 06:06 Dose: 50 mcg Losartan Potassium (Cozaar) 100 mg PO DAILY [facility] Metoprolol Tartrate (Lopressor) 12.5 mg PO BID [facility] Last Admin: 07/31/18 20:01 Dose: 12.5 mg Miscellaneous (Pill Splitter) 1 each OTHER PRN PRN PRN Reason: SEE LABEL COMMENTS Ondansetron HCl (Zofran Inj) 4 mg IV.PUSH Q6H PRN PRN Reason: NAUSEA OR VOMITING Pantoprazole Sodium (Protonix) 20 mg PO DAILY [facility] Sennosides (Senokot) 17.2 mg PO Q12H PRN PRN Reason: Moderate Constipation Sodium Chloride (Ns Flush) 2 ml IV.FLUSH BID [facility] Last Admin: 07/31/18 20:02 Dose: Not Given Sodium Chloride (Ns Flush) 2 ml IV.FLUSH PRN PRN PRN Reason: FLUSH AFTER USING IV ACCESS Timolol Maleate (Timoptic 0.5% Drops) 1 drops EACH EYE BID [facility] Last Admin: 07/31/18 21:27 Dose: Not Given Allergies/Adverse Reactions: Allergies Allergy/AdvReac Type Severity Reaction Status Date / Time cefazolin [From [facility]] Allergy Abdominal Verified 07/31/18 13:02 Pain gentamicin AdvReac Severe VESTIBULAR Verified 07/31/18 11:40 DESTRUCTION Physical Exam Vital signs: Vital Signs 07/31/18 11:28 07/31/18 13:05 07/31/18 15:18 Temperature 97.2 F L 97.8 F Pulse Rate 54 L 45 L 48 L Respiratory Rate 14 16 Blood Pressure 138/83 140/66 Pulse Oximetry 97 99 07/31/18 17:00 07/31/18 17:33 07/31/18 19:05 Temperature 97.7 F 97.7 F 97.9 F Pulse Rate 52 L 51 L 48 L Respiratory Rate 17 16 18 Blood Pressure 132/77 131/62 128/62 Pulse Oximetry 98 95 96 07/31/18 19:20 07/31/18 19:37 07/31/18 19:38 Temperature 97.7 F 98.7 F 98.7 F Pulse Rate 52 L 56 L 57 L Respiratory Rate 16 16 16 Blood Pressure 130/62 151/64 H 151/64 H Pulse Oximetry 94 L 94 L 07/31/18 20:35 07/31/18 20:59 07/31/18 21:00 Temperature 97.8 F 97.8 F Pulse Rate 52 L 52 L 52 L Respiratory Rate 16 16 16 Blood Pressure 128/62 131/58 L 130/52 L Pulse Oximetry 96 96 07/31/18 22:00 07/31/18 23:00 07/31/18 23:39 Temperature 97.8 F 97.9 F 98.9 F Pulse Rate 54 L 62 53 L Respiratory Rate 16 16 14 Blood Pressure 128/64 130/62 117/56 L Pulse Oximetry 96 92 L 08/01/18 00:00 08/01/18 01:00 08/01/18 02:00 Temperature 97.7 F 97.6 F 97.6 F Pulse Rate 52 L 63 52 L Respiratory Rate 18 16 16 Blood Pressure 132/62 131/77 118/58 L Pulse Oximetry 98 96 96 08/01/18 03:55 08/01/18 03:56 08/01/18 04:00 Temperature 98.0 F 98.0 F Pulse Rate 51 L 51 L Respiratory Rate 16 16 Blood Pressure 137/62 137/62 Pulse Oximetry 91 L 91 L 94 L Intake & Output 07/31/18 07/31/18 08/01/18 06:59 18:59 06:59 Intake Total 1000 / 1000 1160 / 1160 Balance 1000 / 1000 1160 / 1160 Weight 73.936 kg 73.94 kg Intake: IV 1000 / 1000 300 / 300 Privigen Inj 30 GM In Bag/ 300 / 300 Syringe 1 EACH @ 37.5 mls/hr IV .SIG TITRATE [facility] Rx#:[id number] NS Inj 1,000 ML @ 1000 mls/hr 1000 / 1000 IV.SIG BOLUS [facility] Rx#:[id number] Oral 360 / 360 Other 500 / 500 Other: Other Intake Source Saline Solution # Voids 3 Date of Last Bowel Movement 07/30/18 07/30/18 Weight On Admission 73.936 kg Narrative: awake alert lifts knee off bed well 5-/5 Objective Laboratory Results - last 24 hr 07/31/18 07/31/18 07/31/18 13:19 13:30 13:30 WBC 8.2 RBC 4.30 Hgb 13.2 Hct 39.7 MCV 92.2 MCH 30.6 MCHC 33.2 RDW 17.2 Plt Count 262 MPV 7.1 Neut % (Auto) 78.5 H Lymph % (Auto) 16.2 [place] % (Auto) 3.6 Eos % (Auto) 1.3 Baso % (Auto) 0.4 Neut # (Auto) 6.5 Lymph # (Auto) 1.3 [place] # (Auto) 0.3 Eos # (Auto) 0.1 Baso # (Auto) 0.0 WBC Differential . Differential Comment Auto diff final Sodium 140 Potassium 4.6 Chloride 102 Carbon Dioxide 30.7 Anion Gap 7 BUN 20 H Creatinine 0.99 Estimated GFR 54 L POC Glucose 266 H Random Glucose 318 H Calcium 8.5 Magnesium 2.1 Total Bilirubin 0.4 AST 55 H ALT 96 H Alkaline Phosphatase 86 Total Creatine Kinase 1548 H CK-MB (CK-2) 93.9 H CK-MB (CK-2) % 6.1 H* Total Protein 6.5 Albumin 3.0 L TSH 0.688 Urine Color Urine Clarity Urine pH Ur Specific [place] Urine Protein Urine Glucose (UA) Urine Ketones Urine Occult Blood Urine Nitrate Urine Bilirubin Urine Urobilinogen Ur Leukocyte Esterase Urine RBC Urine WBC Ur Squamous Epith Cells Urine Bacteria Hyaline Casts Urine Mucus Micro UA Comment Ur Microscopic Review Urine Culture Comments IgA 07/31/18 07/31/18 07/31/18 15:24 17:04 20:50 WBC RBC Hgb Hct MCV MCH MCHC RDW Plt Count MPV Neut % (Auto) Lymph % (Auto) [place] % (Auto) Eos % (Auto) Baso % (Auto) Neut # (Auto) Lymph # (Auto) [place] # (Auto) Eos # (Auto) Baso # (Auto) WBC Differential Differential Comment Sodium Potassium Chloride Carbon Dioxide Anion Gap BUN Creatinine Estimated GFR POC Glucose 195 H 113 H Random Glucose Calcium Magnesium Total Bilirubin AST ALT Alkaline Phosphatase Total Creatine Kinase CK-MB (CK-2) CK-MB (CK-2) % Total Protein Albumin TSH Urine Color Yellow Urine Clarity Hazy H Urine pH 5.0 Ur Specific [place] 1.010 Urine Protein Negative Urine Glucose (UA) Negative Urine Ketones Negative Urine Occult Blood Negative Urine Nitrate Negative Urine Bilirubin Negative Urine Urobilinogen Less than 2 Ur Leukocyte Esterase Negative Urine RBC 1 Urine WBC 1 Ur Squamous Epith Cells 6 Urine Bacteria Occasional H Hyaline Casts 1 Urine Mucus Few H Micro UA Comment Culture not ind Ur Microscopic Review Not Reportable Urine Culture Comments Culture not ind IgA 07/31/18 07/31/18 08/01/18 20:54 20:54 03:35 WBC RBC Hgb Hct MCV MCH MCHC RDW Plt Count MPV Neut % (Auto) Lymph % (Auto) [place] % (Auto) Eos % (Auto) Baso % (Auto) Neut # (Auto) Lymph # (Auto) [place] # (Auto) Eos # (Auto) Baso # (Auto) WBC Differential Differential Comment Sodium 140 Potassium 4.0 Chloride 106 Carbon Dioxide 29.2 Anion Gap 5 BUN 18 Creatinine 0.94 Estimated GFR 57 L POC Glucose Random Glucose 190 H D Calcium 8.0 L Magnesium Total Bilirubin 0.6 AST 43 H ALT 76 H Alkaline Phosphatase 80 Total Creatine Kinase 1283 H 1372 H CK-MB (CK-2) 60.2 H 53.6 H CK-MB (CK-2) % 4.7 H* 3.9 Total Protein 6.2 L Albumin 2.7 L TSH Urine Color Urine Clarity Urine pH Ur Specific [place] Urine Protein Urine Glucose (UA) Urine Ketones Urine Occult Blood Urine Nitrate Urine Bilirubin Urine Urobilinogen Ur Leukocyte Esterase Urine RBC Urine WBC Ur Squamous Epith Cells Urine Bacteria Hyaline Casts Urine Mucus Micro UA Comment Ur Microscopic Review Urine Culture Comments IgA 92 Cancelled 08/01/18 03:35 WBC 5.0 RBC 4.04 Hgb 12.2 Hct 36.7 MCV 90.8 MCH 30.2 MCHC 33.3 RDW 16.5 Plt Count 209 MPV 7.1 Neut % (Auto) 60.6 Lymph % (Auto) 33.4 [place] % (Auto) 2.1 Eos % (Auto) 2.9 Baso % (Auto) 1.0 Neut # (Auto) 3.0 Lymph # (Auto) 1.7 [place] # (Auto) 0.1 Eos # (Auto) 0.1 Baso # (Auto) 0.0 WBC Differential . Differential Comment Auto diff final Sodium Potassium Chloride Carbon Dioxide Anion Gap BUN Creatinine Estimated GFR POC Glucose Random Glucose Calcium Magnesium Total Bilirubin AST ALT Alkaline Phosphatase Total Creatine Kinase CK-MB (CK-2) CK-MB (CK-2) % Total Protein Albumin TSH Urine Color Urine Clarity Urine pH Ur Specific [place] Urine Protein Urine Glucose (UA) Urine Ketones Urine Occult Blood Urine Nitrate Urine Bilirubin Urine Urobilinogen Ur Leukocyte Esterase Urine RBC Urine WBC Ur Squamous Epith Cells Urine Bacteria Hyaline Casts Urine Mucus Micro UA Comment Ur Microscopic Review Urine Culture Comments IgA Review/Management - Review/Management Plan: imp day 2 ivig she can dc after third dose for a total of 2gm/kg watch renal fxt on it oob PT eliquis stable neuro no bad rxt to rx mtx too
[2018-08-01] MEDS ORDERED: Non-Formulary Drug (Losartan-Hydrochlorothiazide [Losartan-Hydrochlorothiazide] 1 TAB) PO SCH (09:00)
[2018-08-01] MEDS ORDERED: IVIG (Immune Globulin) Inj 30 GM in Syringe/Bag 1 EACH IV.SIG SCH (09:00)
[2018-08-01] MEDS: Insulin NovoLOG Aspart Correctional Sugar Inj SQ SCH ×4 (10:18→22:31)
[2018-08-01] MEDS: FLUoxetine 20 MG Capsule PO SCH (10:19)
[2018-08-01] MEDS: hydroCHLOROthiazide 25 MG Tablet PO SCH (10:19)
[2018-08-01] MEDS: Folic Acid 1 MG Tablet PO SCH (10:19)
[2018-08-01] MEDS: Metoprolol Tartrate 25 MG Tablet PO SCH (10:19)
[2018-08-01] MEDS: Pantoprazole Sodium 20 MG DR Tablet PO SCH (10:20)
[2018-08-01] MEDS: Timolol 0.5% Drops 5 ML Bottle EACH EYE SCH ×2 (10:21→23:00)
--- NOTE | 2018-08-01 11:03 | P.PN ---
Subjective Interval history: Follow up for weakness with hx of inflammatory myopathy. The patient is seen getting off bedside commode with assistance of RN. The patient reports continued generalized weakness. She is s/p 1 dose of the IVIG last night. Denies any other medical complaints including no fevers/chills, headache, lightheadedness, dizziness, chest pain, shortness of breath, or abdominal complaints. Physical Exam Vital signs: Vital Signs 07/31/18 11:28 07/31/18 13:05 07/31/18 15:18 Temperature 97.2 F L 97.8 F Pulse Rate 54 L 45 L 48 L Respiratory Rate 14 16 Blood Pressure 138/83 140/66 Pulse Oximetry 97 99 07/31/18 17:00 07/31/18 17:33 07/31/18 19:05 Temperature 97.7 F 97.7 F 97.9 F Pulse Rate 52 L 51 L 48 L Respiratory Rate 17 16 18 Blood Pressure 132/77 131/62 128/62 Pulse Oximetry 98 95 96 07/31/18 19:20 07/31/18 19:37 07/31/18 19:38 Temperature 97.7 F 98.7 F 98.7 F Pulse Rate 52 L 56 L 57 L Respiratory Rate 16 16 16 Blood Pressure 130/62 151/64 H 151/64 H Pulse Oximetry 94 L 94 L 07/31/18 20:35 07/31/18 20:59 07/31/18 21:00 Temperature 97.8 F 97.8 F Pulse Rate 52 L 52 L 52 L Respiratory Rate 16 16 16 Blood Pressure 128/62 131/58 L 130/52 L Pulse Oximetry 96 96 07/31/18 22:00 07/31/18 23:00 07/31/18 23:39 Temperature 97.8 F 97.9 F 98.9 F Pulse Rate 54 L 62 53 L Respiratory Rate 16 16 14 Blood Pressure 128/64 130/62 117/56 L Pulse Oximetry 96 92 L 08/01/18 00:00 08/01/18 01:00 08/01/18 02:00 Temperature 97.7 F 97.6 F 97.6 F Pulse Rate 52 L 63 52 L Respiratory Rate 18 16 16 Blood Pressure 132/62 131/77 118/58 L Pulse Oximetry 98 96 96 08/01/18 03:55 08/01/18 03:56 08/01/18 04:00 Temperature 98.0 F 98.0 F Pulse Rate 51 L 51 L Respiratory Rate 16 16 Blood Pressure 137/62 137/62 Pulse Oximetry 91 L 91 L 94 L 08/01/18 08:00 Temperature 98.3 F Pulse Rate 51 L Respiratory Rate 18 Blood Pressure 138/63 Pulse Oximetry 90 L Intake & Output 07/31/18 08/01/18 08/01/18 18:59 06:59 18:59 Intake Total 1000 / 1000 1160 / 1160 Balance 1000 / 1000 1160 / 1160 Weight 73.936 kg 73.94 kg Intake: IV 1000 / 1000 300 / 300 Privigen Inj 30 GM In Bag/ 300 / 300 Syringe 1 EACH @ 37.5 mls/hr IV .SIG TITRATE SANJAY Rx#:[id number] NS Inj 1,000 ML @ 1000 mls/hr 1000 / 1000 IV.SIG BOLUS SANJAY Rx#:[id number] Oral 360 / 360 Other 500 / 500 Other: Other Intake Source Saline Solution # Voids 3 Date of Last Bowel Movement 07/30/18 07/30/18 Weight On Admission 73.936 kg Narrative: GENERAL: Well-nourished, well-developed pleasant elderly female patient in [facility]. SKIN: Warm and dry. No rash. HEENT: Normocephalic. Atraumatic. Pupils equal and round. Mucous membranes pink and moist. CARDIOVASCULAR: Regular rate and rhythm. No murmur appreciated. RESPIRATORY: No accessory muscle use. Clear to auscultation. Breath sounds equal bilaterally. GASTROINTESTINAL: Abdomen soft, non-tender, nondistended. Normoactive bowel sounds x4. MUSCULOSKELETAL: No obvious deformities. Extremities without clubbing, cyanosis , or edema. NEUROLOGICAL: Awake and alert. No obvious cranial nerve deficits. Motor grossly within normal limits. Moving all extremities spontaneously, with 5/5 turfgrass management professor strength and hip flexion bilaterally. Normal speech. PSYCHIATRIC: Appropriate mood and affect; insight and judgment normal. Results - Labs CBC & Chem 7: 08/01/18 03:35 08/01/18 03:35 Laboratory Results - last 24 hr 07/31/18 07/31/18 07/31/18 13:19 13:30 13:30 WBC 8.2 RBC 4.30 Hgb 13.2 Hct 39.7 MCV 92.2 MCH 30.6 MCHC 33.2 RDW 17.2 Plt Count 262 MPV 7.1 Neut % (Auto) 78.5 H Lymph % (Auto) 16.2 [place] % (Auto) 3.6 Eos % (Auto) 1.3 Baso % (Auto) 0.4 Neut # (Auto) 6.5 Lymph # (Auto) 1.3 [place] # (Auto) 0.3 Eos # (Auto) 0.1 Baso # (Auto) 0.0 WBC Differential . Differential Comment Auto diff final Sodium 140 Potassium 4.6 Chloride 102 Carbon Dioxide 30.7 Anion Gap 7 BUN 20 H Creatinine 0.99 Estimated GFR 54 L POC Glucose 266 H Random Glucose 318 H Hemoglobin A1c Calcium 8.5 Magnesium 2.1 Total Bilirubin 0.4 AST 55 H ALT 96 H Alkaline Phosphatase 86 Total Creatine Kinase 1548 H CK-MB (CK-2) 93.9 H CK-MB (CK-2) % 6.1 H* Total Protein 6.5 Albumin 3.0 L TSH 0.688 Urine Color Urine Clarity Urine pH Ur Specific [place] Urine Protein Urine Glucose (UA) Urine Ketones Urine Occult Blood Urine Nitrate Urine Bilirubin Urine Urobilinogen Ur Leukocyte Esterase Urine RBC Urine WBC Ur Squamous Epith Cells Urine Bacteria Hyaline Casts Urine Mucus Micro UA Comment Ur Microscopic Review Urine Culture Comments IgA 07/31/18 07/31/18 07/31/18 13:30 15:24 17:04 WBC RBC Hgb Hct MCV MCH MCHC RDW Plt Count MPV Neut % (Auto) Lymph % (Auto) [place] % (Auto) Eos % (Auto) Baso % (Auto) Neut # (Auto) Lymph # (Auto) [place] # (Auto) Eos # (Auto) Baso # (Auto) WBC Differential Differential Comment Sodium Potassium Chloride Carbon Dioxide Anion Gap BUN Creatinine Estimated GFR POC Glucose 195 H 113 H Random Glucose Hemoglobin A1c 9.0 H Calcium Magnesium Total Bilirubin AST ALT Alkaline Phosphatase Total Creatine Kinase CK-MB (CK-2) CK-MB (CK-2) % Total Protein Albumin TSH Urine Color Urine Clarity Urine pH Ur Specific [place] Urine Protein Urine Glucose (UA) Urine Ketones Urine Occult Blood Urine Nitrate Urine Bilirubin Urine Urobilinogen Ur Leukocyte Esterase Urine RBC Urine WBC Ur Squamous Epith Cells Urine Bacteria Hyaline Casts Urine Mucus Micro UA Comment Ur Microscopic Review Urine Culture Comments IgA 07/31/18 07/31/18 07/31/18 20:50 20:54 20:54 WBC RBC Hgb Hct MCV MCH MCHC RDW Plt Count MPV Neut % (Auto) Lymph % (Auto) [place] % (Auto) Eos % (Auto) Baso % (Auto) Neut # (Auto) Lymph # (Auto) [place] # (Auto) Eos # (Auto) Baso # (Auto) WBC Differential Differential Comment Sodium Potassium Chloride Carbon Dioxide Anion Gap BUN Creatinine Estimated GFR POC Glucose Random Glucose Hemoglobin A1c Calcium Magnesium Total Bilirubin AST ALT Alkaline Phosphatase Total Creatine Kinase 1283 H CK-MB (CK-2) 60.2 H CK-MB (CK-2) % 4.7 H* Total Protein Albumin TSH Urine Color Yellow Urine Clarity Hazy H Urine pH 5.0 Ur Specific [place] 1.010 Urine Protein Negative Urine Glucose (UA) Negative Urine Ketones Negative Urine Occult Blood Negative Urine Nitrate Negative Urine Bilirubin Negative Urine Urobilinogen Less than 2 Ur Leukocyte Esterase Negative Urine RBC 1 Urine WBC 1 Ur Squamous Epith Cells 6 Urine Bacteria Occasional H Hyaline Casts 1 Urine Mucus Few H Micro UA Comment Culture not ind Ur Microscopic Review Not Reportable Urine Culture Comments Culture not ind IgA 92 Cancelled 08/01/18 08/01/18 08/01/18 03:35 03:35 07:52 WBC 5.0 RBC 4.04 Hgb 12.2 Hct 36.7 MCV 90.8 MCH 30.2 MCHC 33.3 RDW 16.5 Plt Count 209 MPV 7.1 Neut % (Auto) 60.6 Lymph % (Auto) 33.4 [place] % (Auto) 2.1 Eos % (Auto) 2.9 Baso % (Auto) 1.0 Neut # (Auto) 3.0 Lymph # (Auto) 1.7 [place] # (Auto) 0.1 Eos # (Auto) 0.1 Baso # (Auto) 0.0 WBC Differential . Differential Comment Auto diff final Sodium 140 Potassium 4.0 Chloride 106 Carbon Dioxide 29.2 Anion Gap 5 BUN 18 Creatinine 0.94 Estimated GFR 57 L POC Glucose 162 H Random Glucose 190 H D Hemoglobin A1c Calcium 8.0 L Magnesium Total Bilirubin 0.6 AST 43 H ALT 76 H Alkaline Phosphatase 80 Total Creatine Kinase 1372 H CK-MB (CK-2) 53.6 H CK-MB (CK-2) % 3.9 Total Protein 6.2 L Albumin 2.7 L TSH Urine Color Urine Clarity Urine pH Ur Specific [place] Urine Protein Urine Glucose (UA) Urine Ketones Urine Occult Blood Urine Nitrate Urine Bilirubin Urine Urobilinogen Ur Leukocyte Esterase Urine RBC Urine WBC Ur Squamous Epith Cells Urine Bacteria Hyaline Casts Urine Mucus Micro UA Comment Ur Microscopic Review Urine Culture Comments IgA Assessment and Plan - Plan 78-year-old female with history of atrial fibrillation, diabetes, hypothyroidism , 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 Acute exacerbation of chronic inflammatory myopathy. Acute Rhabdomyolysis/CK elevation. -Trend CK 1548 --> 1283 --> 1372 -Continue on IVF hydration -Consult neurologist Dr. Panchal, plans for IVIG once daily 3 doses. -Consult PT/OT Diabetes mellitus: with hyperglycemia in the 300s on admission -Insulin sliding scale -diabetic diet. HgbA1c 9.0 -Start Levemir 5u bid Atrial fibrillation: chronic -Continue metoprolol for rate control. -Continue Eliquis for anticoagulation. Hypertension: Chronic. Blood pressure acceptable. -Continue patient's losartan, HCTZ, metoprolol -Monitor BP, adjust antihypertensives as needed Glaucoma: Chronic. -Continue timolol eye drops Hypothyroidism. Chronic. -TSH 0.68 within normal limits. -Continue home Synthroid 50mcg daily DVT prophylaxis: on Eliquis Discharge Planning: Patient will receive last dose of IVIG at 9pm on 08/02. Will plan to discharge in am on 08/03.
[2018-08-01] MEDS: Insulin Detemir Inj 1,000 UNIT/10 ML Vial SQ SCH ×2 (13:26→22:31)
--- NOTE | 2018-08-01 13:54 | ECG ---
Date Performed: 07/31/2018 Time Performed: 13:42:51 PTAGE: 78 years EKG: SINUS BRADYCARDIA LEFT VENTRICULAR HYPERTROPHY AND ST-T CHANGE ABNORMAL ECG Since the PREVIOUS TRACING , no significant change noted PREVIOUS TRACIN03/09/2010 06.22 DOCTOR: Ez Reyes Interpretating Date/Time 08/01/2018 13:49:15
[2018-08-01] MEDS: Acetaminophen 325 MG Tablet PO SCH (20:20)
[2018-08-01] MEDS: IVIG (Immune Globulin) Inj 30 GM in Syringe/Bag 1 EACH IV.SIG SCH (22:40)
[2018-08-02] MEDS: Metoprolol Tartrate 25 MG Tablet PO SCH ×3 (04:24→21:36)
[2018-08-02] MEDS: Levothyroxine 50 MCG Tablet PO SCH (05:11)
[2018-08-02] MEDS: Sod Chloride 0.9% Inj 1,000 ML IV.CONT SCH ×2 (05:48→10:30)
[2018-08-02] MEDS ORDERED: Insulin Detemir Inj 1,000 UNIT/10 ML Vial SQ SCH (07:53)
[2018-08-02] MEDS: FLUoxetine 20 MG Capsule PO SCH (08:47)
[2018-08-02] MEDS: Folic Acid 1 MG Tablet PO SCH (08:47)
[2018-08-02] MEDS: Pantoprazole Sodium 20 MG DR Tablet PO SCH (08:47)
[2018-08-02] MEDS: hydroCHLOROthiazide 25 MG Tablet PO SCH (08:48)
[2018-08-02 08:59] LABS: Calcium 7.8 mg/dL (8.5-10.1); Carbon Dioxide 23.3 meq/L (21.0-32.0); Potassium 3.6 meq/L (3.5-5.1)
[2018-08-02] MEDS: clonazePAM 0.5 MG Tablet PO SCH ×2 (08:59→21:35)
[2018-08-02] MEDS: Insulin NovoLOG Aspart Correctional Sugar Inj SQ SCH ×4 (09:00→21:39)
[2018-08-02] MEDS: Timolol 0.5% Drops 5 ML Bottle EACH EYE SCH ×2 (09:01→21:39)
--- NOTE | 2018-08-02 09:07 | P.PN ---
Subjective Interval history: Follow up on patient with exacerbation of inflammatory myopathy. Patient seen and examined. Patient is complaining of dyspnea which is new this morning without cough. She denies any fever or chills. She denies any headache, dizziness or vision changes. She denies any chest pain or discomfort. She denies any N/V or abdominal pain. She says the strength in her legs has improved some. She is now able to lift her legs off of the bed which she was not able to do yesterday. She complains of urinary incontinence. We discussed her going to inpatient rehab which she sternly refuses and says she wants to go home and resume therapy she was getting prior to hospital admission. She takes 0.5mg of Clonazepam at home twice a day which has not been resumed here. Physical Exam Vital signs: Vital Signs 08/01/18 09:00 08/01/18 12:00 08/01/18 16:00 Temperature Pulse Rate 50 L 57 L 47 L Respiratory Rate 18 18 Blood Pressure 133/62 140/62 Pulse Oximetry 93 L 97 08/01/18 20:00 08/01/18 22:57 08/01/18 23:12 Temperature 98.3 F 98.4 F 98.4 F Pulse Rate 48 L 47 L 46 L Respiratory Rate 14 22 20 Blood Pressure 122/73 134/56 L 139/63 Pulse Oximetry 94 L 95 94 L 08/01/18 23:27 08/02/18 00:42 08/02/18 02:00 Temperature 98.4 F 97.7 F 97.7 F Pulse Rate 42 L 42 L 46 L Respiratory Rate 20 16 16 Blood Pressure 148/66 H 130/62 141/65 H Pulse Oximetry 94 L 97 93 L 08/02/18 03:00 08/02/18 04:00 08/02/18 07:27 Temperature 97.8 F 97.6 F 97.6 F Pulse Rate 48 L 44 L 52 L Respiratory Rate 18 16 20 Blood Pressure 137/64 125/58 L 139/65 Pulse Oximetry 95 94 L 95 Intake & Output 08/01/18 08/02/18 08/02/18 18:59 06:59 18:59 Intake Total 1000 / 1000 2280 / 2280 Balance 1000 / 1000 2280 / 2280 Intake: IV 1000 / 1000 1800 / 1800 NS Inj 1,000 ML @ 150 mls/hr IV 1000 / 1000 1000 / 1000 .CONT .Q6H40M SANJAY Rx#:[id number] Privigen Inj 30 GM In Bag/ 300 / 300 Syringe 1 EACH @ 37.5 mls/hr IV .SIG Q24H SANJAY Rx#:[id number] D5W Inj 500 ML @ 30 mls/hr 500 / 500 OTHER Q24H SANJAY Rx#:[id number] Oral 480 / 480 Other: # Voids 3 1 Date of Last Bowel Movement 08/01/18 # Bowel Movements 0 Narrative: GENERAL: Well-nourished, well-developed pleasant elderly female patient. Awake and alert. Mildly dyspneic with conversation. SKIN: Warm and dry. No rash. HEENT: Normocephalic. Atraumatic. EOMI. Sclera anicteric. Mucous membranes pink and moist. CARDIOVASCULAR: Regular rate and rhythm. No murmur appreciated. RESPIRATORY: No accessory muscle use. Bibasilar crackles noted on exam. Breath sounds equal bilaterally. GASTROINTESTINAL: Abdomen soft, non-tender, nondistended. Normoactive bowel sounds x4. MUSCULOSKELETAL: No obvious deformities. Extremities without clubbing, cyanosis , or edema. NEUROLOGICAL: Awake and alert. No obvious cranial nerve deficits. Able to move all extremities spontaneously. Able to lift both LEs off of the bed. BLE dorsi and plantar flexion 4/5. Good paid search analyst strength bilaterally. Normal speech. PSYCHIATRIC: Appropriate mood and affect; insight and judgment normal. 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 Dyspnea, suspect possible fluid overload -D/C IVF -give IV Lasix 20mg x 1 dose -obtain BNP and D-Dimer - low suspicion for PE/DVT as patient anticoagulated on Eliquis -obtain CXR, EKG. -Check Musa - patient has no cardiac complaints at this time -continue on cardiac telemetry Acute exacerbation of chronic inflammatory myopathy. Acute Rhabdomyolysis/CK elevation. -Trend CK 1548 --> 1283 --> 1372, repeat lab ordered for today -Discontinue IV fluids secondary to concern for fluid overload -Neurologist Dr. Panchal following,appreciate assistance. Plans for IVIG once daily 3 doses. Patient has received 2 infusions thus far. -Continue with PT/OT - both recommend rehab at discharge which patient adamantly declines electing instead to resume her [facility] therapy in place prior to admission Diabetes mellitus: with hyperglycemia in the 300s on admission HgbA1c 9.0 -continue on Insulin sliding scale -diabetic diet. -BS 122 this am. Continue on Levemir 5u bid. -continue to monitor BS and adjust insulin regimen accordingly Atrial fibrillation: chronic Sinus bradycardia -Continue metoprolol for rate control with hold parameters. May need to decrease dose. -Continue Eliquis for anticoagulation. Hypertension: Chronic. Blood pressure acceptable. -Continue patient's losartan, HCTZ, metoprolol -Monitor BP, adjust antihypertensives as needed Glaucoma: Chronic. -Continue timolol eye drops Hypothyroidism. Chronic. -TSH 0.68 within normal limits. -Continue home Synthroid 50mcg daily Anxiety, on chronic benzodiazepine use at home, possibly contributing to patients dyspnea -resume home dose of Clonazepam 0.5mg BID DVT prophylaxis: on Eliquis Code Status: Full Discussed Condition With: patient, nursing staff, Dr. Reeder Discharge Planning: Patient will receive last dose of IVIG at 9pm on 08/02. Will plan to discharge in am on 08/03 pending dyspnea workup and clinical improvement in shortness of breath.
--- NOTE | 2018-08-02 09:20 | XR ---
EXAM DATE: 08/02/2018 9:17 AM EST AGE/SEX: 78 years / Female INDICATIONS: Short of Breath CLINICAL DATA: This is the patient's initial encounter. Patient reports that signs and symptoms have been present for 2 days and indicates a pain score of 0/10. MEDICAL/SURGICAL HISTORY: Diabetes. Hypertension. AFIB None. COMPARISON: [facility], XR CHEST PA AND LAT, 10/14/2017. . FINDINGS: Compared to the prior study there has been increased interstitial markings bilaterally with prominenc e of the pulmonary vasculature. The heart size is upper limits of normal. No definite pleural effusio ns are demonstrated. The bony structures are grossly intact. CONCLUSION: Increased interstitial markings bilaterally suggestive of pulmonary edema. Electronically signed by: Jeffy Arevalo MD 08/02/2018 9:19 AM EST
[2018-08-02 10:41] LABS: Troponin I 0.03 ng/mL (0.02-0.05)
[2018-08-02 10:54] LABS: CKMB Percent 3.4 % (0.0-4.0); Creatine Kinase MB 69.4 ng/mL (0.5-3.6)
[2018-08-02] MEDS: Acetaminophen 325 MG Tablet PO SCH (19:40)
[2018-08-02] MEDS: IVIG (Immune Globulin) Inj 30 GM in Syringe/Bag 1 EACH IV.SIG SCH (21:08)
[2018-08-02] MEDS: Insulin Detemir Inj 1,000 UNIT/10 ML Vial SQ SCH (21:38)
[2018-08-03] MEDS: Levothyroxine 50 MCG Tablet PO SCH (06:11)
[2018-08-03] MEDS: Timolol 0.5% Drops 5 ML Bottle EACH EYE SCH (08:00)
[2018-08-03] MEDS: Insulin Detemir Inj 1,000 UNIT/10 ML Vial SQ SCH (08:00)
[2018-08-03] MEDS: FLUoxetine 20 MG Capsule PO SCH (08:00)
[2018-08-03] MEDS: Pantoprazole Sodium 20 MG DR Tablet PO SCH (08:00)
[2018-08-03] MEDS: Insulin NovoLOG Aspart Correctional Sugar Inj SQ SCH ×2 (08:20→14:07)
[2018-08-03] MEDS: Folic Acid 1 MG Tablet PO SCH (08:22)
[2018-08-03] MEDS: hydroCHLOROthiazide 25 MG Tablet PO SCH (08:22)
[2018-08-03] MEDS: clonazePAM 0.5 MG Tablet PO SCH (08:23)
[2018-08-03] MEDS: Metoprolol Tartrate 25 MG Tablet PO SCH (08:23)
[2018-08-03 11:10] LABS: Calcium 7.6 mg/dL (8.5-10.1); Carbon Dioxide 27.1 meq/L (21.0-32.0); Potassium 3.3 meq/L (3.5-5.1)
[2018-08-03 11:40] LABS: Creatine Kinase MB 32.8 ng/mL (0.5-3.6)
--- NOTE | 2018-08-03 12:51 | ECG ---
Date Performed: 08/02/2018 Time Performed: 09:56:07 PTAGE: 78 years EKG: SINUS BRADYCARDIA WITH SHORT GA INTERVAL BORDERLINE ECG INTERPRETATION BASED ON A DEFAULT A GE OF 40 YEARS Since the PREVIOUS TRACING , no significant change noted PREVIOUS TRACIN07/31/2018 13.42 DOCTOR: Ez Reyes Interpretating Date/Time 08/03/2018 12:50:49
--- NOTE | 2018-08-03 13:49 | P.PNIM ---
Subjective Interval history: Patient reports she is feeling much better today. Breathing comfortably on room air. No chest pain. Patient states he she had normal heart catheterization and 2D echocardiogram a few weeks ago. Physical Exam Vital signs: Vital Signs 08/02/18 14:12 08/02/18 20:00 08/02/18 23:41 Temperature 98.5 F 98.3 F Pulse Rate 52 L 48 L 42 L Respiratory Rate 20 20 Blood Pressure 137/65 178/71 H Pulse Oximetry 95 95 08/03/18 00:00 08/03/18 00:01 08/03/18 04:00 Temperature 97.7 F 99.3 F Pulse Rate 43 L 41 L 49 L Respiratory Rate 20 20 Blood Pressure 143/66 H 154/68 H Pulse Oximetry 93 L 92 L 08/03/18 08:00 08/03/18 08:10 Temperature 99.8 F H Pulse Rate 48 L 50 L Respiratory Rate 14 18 Blood Pressure 127/78 Pulse Oximetry 95 Intake & Output 08/02/18 08/03/18 08/03/18 18:59 06:59 18:59 Intake Total 1000 / 1000 300 / 300 Balance 1000 / 1000 300 / 300 Intake: IV 1000 / 1000 300 / 300 NS Inj 1,000 ML @ 150 mls/hr IV 1000 / 1000 .CONT .Q6H40M SANJAY Rx#:[id number] Privigen Inj 30 GM In Bag/ 300 / 300 Syringe 1 EACH @ 37.5 mls/hr IV .SIG Q24H SANJAY Rx#:[id number] Other: # Voids 1 Date of Last Bowel Movement 08/01/18 08/02/18 Narrative: GENERAL: Elderly female in no acute distress. RESPIRATORY: No accessory muscle use. Very faint bibasilar crackles otherwise breath sounds clear to auscultation bilaterally. GASTROINTESTINAL: Abdomen soft, non-tender, nondistended. MUSCULOSKELETAL: Extremities without cyanosis, or edema. NEUROLOGICAL: Awake and alert. No obvious cranial nerve deficits. Able to move all extremities spontaneously but has generalized weakness PSYCHIATRIC: Appropriate mood and affect; insight and judgment normal. Results - Labs CBC & Chem 7: 08/01/18 03:35 08/03/18 07:54 Laboratory Results - last 24 hr 08/02/18 08/02/18 08/03/18 17:28 21:27 07:29 Sodium Potassium Chloride Carbon Dioxide Anion Gap BUN Creatinine Estimated GFR POC Glucose 235 H 200 H 132 H Random Glucose Calcium Total Creatine Kinase CK-MB (CK-2) CK-MB (CK-2) % 08/03/18 08/03/18 07:54 13:00 Sodium 139 Potassium 3.3 L Chloride 104 Carbon Dioxide 27.1 Anion Gap 8 BUN 14 Creatinine 0.82 Estimated GFR 67 L POC Glucose 204 H Random Glucose 126 H Calcium 7.6 L Total Creatine Kinase 1602 H CK-MB (CK-2) 32.8 H CK-MB (CK-2) % 2.0 Assessment and Plan - Plan 78-year-old female with history of atrial fibrillation, diabetes, hypothyroidism , 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 Acute exacerbation of chronic inflammatory myopathy. Acute Rhabdomyolysis/CK elevation. -CK fluctuating. Improved today. -IV fluid discontinued due to fluid overload. -Neurologist Dr. Panchal following,appreciate assistance. Patient received IVIG once daily 3 doses. -Continue with PT/OT - both recommend rehab at discharge. Patient was refusing but is willing to reconsider after further discussion. She realized she needs assistance. Dyspnea secondary to pulmonary edema: - Elevated BNP. - Improved since IVF discontinued and she received a dose of Lasix. - Patient follows regularly with Sales And Marketing Administrator Dr. Magaña, recent and normal Heart cath and echocardiogram per the patient. She refused a repeat echo here - Symptoms greatly improved. Will give one more dose of IV Lasix. Diabetes mellitus: with hyperglycemia in the 300s on admission HgbA1c 9.0 -continue on Insulin sliding scale -diabetic diet. -Continue on Levemir 5u bid. -continue to monitor BS and adjust insulin regimen accordingly Atrial fibrillation: chronic Bradycardia -Hold metoprolol due to persistent bradycardia -Continue Eliquis for anticoagulation. Hypertension: Chronic. Blood pressure acceptable. -Continue patient's losartan, HCTZ -Monitor BP, adjust antihypertensives as needed Glaucoma: Chronic. -Continue timolol eye drops Hypothyroidism. Chronic. -TSH 0.68 within normal limits. -Continue home Synthroid 50mcg daily Anxiety, on chronic benzodiazepine use at home -Continue home dose of Clonazepam 0.5mg BID DVT prophylaxis: on Eliquis Discharge Planning: Plan to discharge to SNF tomorrow. Case management consulted. Patient is now willing to go to SNF.
[2018-08-03 15:19] LABS: Bilirubin,Urine Negative (Negative); Clarity,Urine Hazy (Clear); Color,Urine Amber (Yellw/Straw); Glucose,Urine (UA) Negative (Negative); Leukocyte Esterase,Urine Trace (Negative); Mucus,Urine Few /lpf (Occasional); Nitrite,Urine Negative (Negative); Squamous Epithelial Cell,Urine 10 /hpf (0-5)
--- NOTE | 2018-08-03 16:53 | P.DS ---
Date of admission: 07/31/18 19:10 Primary care physician: UNKNOWN Brief History from admission: HPI as documented by the admitting physician: 78-year-old female with history of atrial fibrillation, diabetes, hypothyroidism , 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 She also reports sweating over the past day with some nausea which has currently resolved. She has been unable to get out of bed, get out of a chair. Denies any chest pain. When asked about diarrhea she reports being unable to control her stool over the past month but denies gunnar diarrhea. Patient update on day of discharge: See daily progress note. Patient initially was considering SNF placement but later reported she felt better. 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 Evaluation and treatment course detailed below: Acute exacerbation of chronic inflammatory myopathy. Acute Rhabdomyolysis/CK elevation. -CK elevation likely secondary to myopathy. Levels fluctuated but trended down. -IV fluid discontinued due to fluid overload. -Neurologist Dr. Panchal following,appreciate assistance. Patient received IVIG once daily 3 doses. -Continue with PT/OT -patient refused SNF placement. We will continue PT efforts at home with physical therapy. Dyspnea secondary to pulmonary edema: Completely resolved - Elevated BNP. - Patient follows regularly with Extracorporeal Technician Dr. Magaña, recent and normal Heart cath and echocardiogram per the patient. She refused a repeat echo here - Symptoms greatly improved. She was given 1 more dose of IV Lasix and advised to follow-up outpatient with cardiology. Diabetes mellitus: with hyperglycemia in the 300s on admission HgbA1c 9.0 -diabetic diet. -Treated with Levemir while inpatient. Advised to follow-up outpatient with PCP. Discussed diabetic diet. Atrial fibrillation: chronic Bradycardia -Hold metoprolol due to persistent bradycardia. Follow-up outpatient with cardiology -Continue Eliquis for anticoagulation. Hypertension: Chronic. Blood pressure acceptable. -Continue patient's losartan, HCTZ Glaucoma: Chronic. -Continue timolol eye drops Hypothyroidism. Chronic. -TSH 0.68 within normal limits. -Continue home Synthroid 50mcg daily Anxiety, on chronic benzodiazepine use at home -Continue home dose of Clonazepam 0.5mg BID - Time Spent with Patient Total time spent providing and/or coordinating discharge services: Greater than 30 minutes - Quality: VTE Deep Vein Thrombosis/Pulmonary Embolism Present on Admission: No Exam Vital signs: Vital Signs 08/02/18 20:00 08/02/18 23:41 08/03/18 00:00 Temperature 98.3 F 97.7 F Pulse Rate 48 L 42 L 43 L Respiratory Rate 20 20 Blood Pressure 178/71 H 143/66 H Pulse Oximetry 95 93 L 08/03/18 00:01 08/03/18 04:00 08/03/18 08:00 Temperature 99.3 F 99.8 F H Pulse Rate 41 L 49 L 48 L Respiratory Rate 20 14 Blood Pressure 154/68 H 127/78 Pulse Oximetry 92 L 95 08/03/18 08:10 08/03/18 12:00 Temperature 98.5 F Pulse Rate 50 L 47 L Respiratory Rate 18 16 Blood Pressure 143/67 H Pulse Oximetry 94 L Intake & Output 08/02/18 08/03/18 08/03/18 18:59 06:59 18:59 Intake Total 1000 / 1000 300 / 300 Balance 1000 / 1000 300 / 300 Intake: IV 1000 / 1000 300 / 300 NS Inj 1,000 ML @ 150 mls/hr IV 1000 / 1000 .CONT .[id number] SANJAY Rx#:[id number] Privigen Inj 30 GM In Bag/ 300 / 300 Syringe 1 EACH @ 37.5 mls/hr IV .SIG Q24H SANJAY Rx#:[id number] Other: # Voids 1 Date of Last Bowel Movement 08/01/18 08/02/18 08/02/18 Narrative: GENERAL: Elderly female in no acute distress. RESPIRATORY: No accessory muscle use. Very faint bibasilar crackles otherwise breath sounds clear to auscultation bilaterally. GASTROINTESTINAL: Abdomen soft, non-tender, nondistended. MUSCULOSKELETAL: Extremities without cyanosis, or edema. NEUROLOGICAL: Awake and alert. No obvious cranial nerve deficits. Able to move all extremities spontaneously but has generalized weakness PSYCHIATRIC: Appropriate mood and affect; insight and judgment normal. Results Procedures completed during hospitalization: None Labs on day of discharge: Labs from last 24 hours 08/03/18 08/03/18 08/03/18 14:21 13:00 07:54 Sodium 139 Potassium 3.3 L Chloride 104 Carbon Dioxide 27.1 Anion Gap 8 BUN 14 Creatinine 0.82 Estimated GFR 67 L POC Glucose 204 H Random Glucose 126 H Calcium 7.6 L Total Creatine Kinase 1602 H CK-MB (CK-2) 32.8 H CK-MB (CK-2) % 2.0 Urine Color Marissa Urine Clarity Hazy H Urine pH 5.0 Ur Specific [place] 1.010 Urine Protein Negative Urine Glucose (UA) Negative Urine Ketones 20 Urine Occult Blood Negative Urine Nitrate Negative Urine Bilirubin Negative Urine Urobilinogen Less than 2 Ur Leukocyte Esterase Trace H Urine RBC Less than 1 Urine WBC 8 H Ur Squamous Epith Cells 10 Urine Mucus Few H Ur Microscopic Review Not Reportable 08/03/18 08/02/18 08/02/18 07:29 21:27 17:28 Sodium Potassium Chloride Carbon Dioxide Anion Gap BUN Creatinine Estimated GFR POC Glucose 132 H 200 H 235 H Random Glucose Calcium Total Creatine Kinase CK-MB (CK-2) CK-MB (CK-2) % Urine Color Urine Clarity Urine pH Ur Specific [place] Urine Protein Urine Glucose (UA) Urine Ketones Urine Occult Blood Urine Nitrate Urine Bilirubin Urine Urobilinogen Ur Leukocyte Esterase Urine RBC Urine WBC Ur Squamous Epith Cells Urine Mucus Ur Microscopic Review - Impressions ITS Impressions Chest X-Ray 08/02/18 00:00 CONCLUSION: Increased interstitial markings bilaterally suggestive of pulmonary edema. Discharge Plan - Discharge Disposition Patient Disposition: /Home Health Service - Discharge Condition Condition: Stable - Discharge Order Discharge Orders: Discharge Order (Routine); Ordered 08/03/18 Ordered By: Jose Zamudio - Physicians Team Primary Care Provider: UNKNOWN, Attending Provider: Jose Zamudio Other Providers: Leandro Panchal MD ; [employer]
--- NOTE | 2018-08-03 17:01 | P.DCO ---
- Diagnosis (1) Rhabdomyolysis Status: Acute (2) Weakness Status: Acute (3) Myopathy Status: Acute - Physical Therapy Order: Evaluate and treat, Improve ambulation, Strength and gait training - Occupational Therapy Order: Evaluate and treat, Improve ADL - Home Health Nursing Order: Medical education, Signs/symptoms of disease process, Medication education-adverse effect - Case Management Consult Case Management Consult-Home Health: Yes - Certification I have seen patient Valente Martel on 08/03/18. My clinical findings support the need for the requested home health care services because: Deconditioned with increased weakness I certify that my clinical findings support that this patient is homebound because: Unsteady gait/balance
== END 2018-08-03 17:57 | disposition home health service (06) ==
LOC: NEDA 11:20 → NEPC 11:20 → NEPHCDU 17:15 → N05 08-02 18:40
PROVIDERS: ADMIT Family Medicine; ATTEND Family Medicine